=== PATIENT | female | born 1975 | race Caucasian/White ===

== ENCOUNTER 2017-04-11 13:14 | Emergency (ER) | payer BC, OTHER ==
[~2017-04-11 13:14] MED LIST: ALPR1 PO; DIAZ10TA PO; POLY10O OS; PRIS50TA PO; TUSSSUS PO; VALT500T PO; ZITH250T PO
[2017-04-11 13:17] VITALS: BP 146/94; PULSE 77; RESP 16; TEMP 98.1; O2SAT 100
[2017-04-11] MEDS ORDERED: [UNRECOGNIZED DRUG - REMARK] PO (13:36)
[2017-04-11] MEDS ORDERED: VENTAER INH (13:36)
[2017-04-11] MEDS ORDERED: TRAZ100T10 PO (13:36)
[2017-04-11] MEDS ORDERED: COZA100T PO (13:36)
[2017-04-11] MEDS ORDERED: XANA1TAB2 PO (13:36)
--- NOTE | 2017-04-11 13:56 | RADRPT ---
EXAM DATE/TIME: 04/11/2017 13:46 [place] COMPARISON: No previous studies available for comparison. INDICATIONS : Short of breath, cough MEDICAL HISTORY : None. SURGICAL HISTORY : None. ENCOUNTER: Initial ACUITY: 1 week PAIN SCORE: 0/10 LOCATION: Bilateral chest FINDINGS: PA and lateral views of the chest demonstrate the lungs to be symmetrically aerated without evidence of mass, infiltrate or effusion. The cardiomediastinal contours are unremarkable. Osseous structure s are intact. CONCLUSION: 1. No acute cardiopulmonary disease. Robb Foster MD on April 11, 2017 at 13:53 Board Certified Radiologist. This report was verified electronically.
[2017-04-11] MEDS ORDERED: AZIT250T3 PO (14:01)
[2017-04-11] MEDS ORDERED: PRED20 PO (14:01)
--- NOTE | 2017-04-11 14:01 | PD ---
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 Patient states she was at her martial arts class today when she started coughing vigorously to the point where was noted that her lips were turning blue according to her ex- who is a radiologist on staff last. No fevers no rashes no chest pain. Patient states she does have a history of asthma has been taking her inhalers only as needed but is not overly short of breath. Nonsmoker. Symptoms are moderate, so she is signs symptoms as above, context as above, now nearly resolved. PFSH Past Medical History ADHD: Yes Asthma: Yes (ACTIVITY INDUCE) Anxiety: Yes Cancer: No Cardiovascular Problems: No Diabetes: No Diminished Hearing: No Endocrine: No Genitourinary: No Hepatitis: No Hiatal Hernia: No Immune Disorder: No Musculoskeletal: Yes (LUMBAR BACK PAIN) Neurologic: No Psychiatric: No Reproductive: No Respiratory: Yes (EXERCISED INDUCED ASTHMA) Thyroid Disease: No ?: Not : 2 Para: 2 Ovarian Cysts: Yes Tubal Ligation: Yes Past Surgical History Body Medical Devices: BILATERAL BREAST IMPLANTS Section: Yes Gynecologic Surgery: Yes (OVARIAN CYST REMOVED 2006, C SECTIONS X 2 2007,2009) Pacemaker: No Other Surgery: Yes (BREAST AUGMENTATION X3) Social History Alcohol Use: Yes (SOCIALLY, MIX DRINKS, WINE OR BEER) Tobacco Use: No Substance Use: No Allergies-Medications (Allergen,Severity, Reaction): Coded Allergies: Sulfa (Sulfonamide Antibiotics) (Unverified Allergy, Severe, Hives, ) celecoxib (Unverified Allergy, Severe, RASH, 04/11/17) shellfish derived (Verified Allergy, Unknown, 04/11/17) acetaminophen (Unverified Adverse Reaction, Severe, NAUSEA/VOMITING, 04/11) hydrocodone (Unverified Adverse Reaction, Severe, NAUSEA/VOMITING, ) Reported Meds & Prescriptions Reported Meds & Active Scripts Active Prednisone 20 Mg Tab 60 Mg PO DAILY 5 Days Azithromycin 250 Mg Tab 250 Mg PO DIRECTED Take 2 tabs (500 mg) on day 1 then 1 tab daily x 4 days. Reported Trazodone (Trazodone HCl) 100 Mg Tablet 100 Mg PO HS Xanax (Alprazolam) 1 Mg Tab 1 Mg PO HS [Trentix] 10 Mg PO DAILY Cozaar (Losartan Potassium) 100 Mg Tab 100 Mg PO DAILY Ventolin Hfa 18 GM Inh (Albuterol Sulfate) 90 Mcg/Act Aer 1 Puff INH Q4H PRN Review of Systems Except as stated in HPI: all other systems reviewed are Neg Physical Exam Narrative GENERAL: Well-developed well-nourished in no obvious distress, no signs of cyanosis in the emergency department. SKIN: Focused skin assessment warm/dry. HEAD: Atraumatic. Normocephalic. EYES: Pupils equal and round. No scleral icterus. No injection or drainage. ENT: No nasal bleeding or discharge. Mucous membranes pink and moist. NECK: Trachea midline. No JVD. CARDIOVASCULAR: Regular rate and rhythm. No murmur appreciated. RESPIRATORY: No accessory muscle use. Trace wheezing in bilateral lower lung powers, otherwise clear to auscultation.. Breath sounds equal bilaterally. Speaks in full sentences, no increased work of breathing. GASTROINTESTINAL: Abdomen soft, non-tender, nondistended. Hepatic and splenic margins not palpable. MUSCULOSKELETAL: No obvious deformities. No clubbing. No cyanosis. No edema. NEUROLOGICAL: Awake and alert. No obvious cranial nerve deficits. Motor grossly within normal limits. Normal speech. PSYCHIATRIC: Appropriate mood and affect; insight and judgment normal. Data Data Last Documented VS Vital Signs Date Time Temp Pulse Resp B/P (MAP) Pulse Ox O2 Delivery O2 Flow Rate FiO2 04/11/17 13:17 98.1 77 16 146/94 (111) 100 Orders Orders Chest, Pa & Lat (04/11/17 ) Ed Discharge Order (04/11/17 14:02) MDM Medical Decision Making Medical Screen Exam Complete: Yes Emergency Medical Condition: Yes Differential Diagnosis Bronchitis, pneumonia, asthma exacerbation. PEs excluded by wells and PERC criteria. Narrative Course Patient roomed in emergency department, she appears quite well and in no distress, chest x-ray shows no acute cardiopulmonary abnormality. Signs symptoms could be consistent with bronchitis. Recommended antibiotic therapy as well as steroids, she is agreeable. Discussed at length returned ED criteria. She stable for discharge. Diagnosis Primary Impression: Acute bronchitis Additional Impression: Laryngitis Med/Other Pt SpecificInfo: Prescription(s) given Scripts Prednisone (Prednisone) 20 Mg Tab 60 MG PO DAILY for 5 Days, #15 TAB 0 Refills Prov: Josesito Jones MD 04/11/17 Azithromycin (Azithromycin) 250 Mg Tab 250 MG PO DIRECTED for Infection, #6 TAB 0 Refills Take 2 tabs (500 mg) on day 1 then 1 tab daily x 4 days. Prov: Josesito Jones MD 04/11/17 Disposition: 01 DISCHARGE HOME Condition: Stable Josesito Jones MD Apr 11, 2017 14:01
== END 2017-04-11 14:28 | disposition home or self-care (01) ==
LOC: PHED 13:14
DX: J20.9 Acute bronchitis, unspecified (principal); J04.0 Acute laryngitis; F90.9 Attention-deficit hyperactivity disorder, unspecified type; M54.5 Low back pain
CPT/HCPCS: 71020; 99284